=== PATIENT | female | born 1970 | race Caucasian/White ===

== ENCOUNTER → 2018-11-18 | Outpatient (CLI) | payer OTHER ==
[~2018-11-18] MED LIST: BIOT10005 PO; BUPR-124 PO; BUPR-136 PO; BUPR-147 PO; CETI10CA8 PO; FISH1CAP15 PO; HYDR-2963 PO; IBUP800T37 PO; LEVO137T22 PO; LISI-362 PO; LISI5TAB25 PO; MULT1TAB64 PO; OXYC-865 PO; SIMV10TA96 PO
[2018-11-18 08:48] LABS: LDL CHOLESTEROL 97 mg/dl
--- NOTE | 2018-11-18 17:29 | RADIOLOGY IMAGING REPORT ---
FACILITY: [facility] - [place], [place] PATIENT NAME: Gerald Sheikh : 1970 MR: [id number] V: [id number] EXAM DATE: ORDERING PHYSICIAN: JOSHUA BLACKBURN TECHNOLOGIST: Location: [facility] - [place] Patient: Gerald Sheikh : 1970 Visit/Account:[id number] Date of Sevice: 11/18/2018 TRANSVAGINAL NON-OB HISTORY: Unsure postmenopausal state, vaginal bleeding TECHNIQUE: Transvaginal ultrasound pelvis. COMPARISON: None. FINDINGS: Uterus: ; 7.2 cm length x 5.3 cm AP x 6.5 cm transverse. Myometrium: Centrally within the uterus there is heterogeneous echogenic masslike area measuring 4.8 x 3.7 x 4.2 cm. It is unclear as to whether this represents a myometrial fibroid effacing the endome trium or whether this represents an endometrial mass. A normal-appearing endometrium is not seen. Endometrium: As above; Cervix: Nabothian cysts. Ovaries: Right - 3.3 x 2.2 x 2.7 cm. No follicles are identified in the right ovary. There are scattere d calcifications present Left - not visualized Blood flow is documented in the right ovary by duplex Doppler ultrasound. Adnexa: Grossly unremarkable. Free pelvic fluid: None. IMPRESSION: There is a large heterogeneous predominantly echogenic mass centrally within the uterus measuring 4.8 x 3.7 x 4.2 cm. This could represent a large fibroid which is effacing the endometrium is a normal- appearing endometrium is not seen. Different diagnosis would also include an endometrial mass. Right ovary contains scattered calcifications. No follicles identified Left ovary not visualized Report Dictated By: Dia Dennison MD at 11/18/2018 5:20 PM Report E-Signed By: Dia Dennison MD at 11/18/2018 5:24 PM WSN:[email or web address]
== END ==
LOC: US 01:02
PROVIDERS: ATTEND Obstetrics & Gynecology
DX: R93.2 Abnormal findings on diagnostic imaging of liver and biliary tract (principal); Z00.00 Encounter for general adult medical examination without abnormal findings; I10 Essential (primary) hypertension; E78.5 Hyperlipidemia, unspecified; E03.9 Hypothyroidism, unspecified; E11.9 Type 2 diabetes mellitus without complications; N95.0 Postmenopausal bleeding
CPT/HCPCS: 36415; 76830; 82040; 82247; 82310; 82374; 82435; 82465; 82565; 82947; 83036; 83718; 84075; 84132; 84155; 84295; 84443; 84450; 84460; 84478; 84520; 85027

== ENCOUNTER 2019-02-11 01:37 | Observation (INO) | payer OTHER ==
[~2019-02-11] VITALS: Ht 162.6 cm; Wt 101.2 kg
[2019-02-11] VITALS (13 sets, daily range): BP systolic 104–129; BP diastolic 56–94
[~2019-02-11 01:37] MED LIST changes: +SEMA1PEN SUBQ
[2019-02-11 06:21] LABS: PLATELET COUNT, AUTOMATED 305 K/uL (150-450)
[2019-02-11] MEDS ORDERED: LIDOCAINE/SOD BICARB 8.4% SYR ID ONE (06:30)
[2019-02-11] MEDS ORDERED: PHENAZOPYRIDINE 200 MG TAB PO ONE (06:30)
[2019-02-11] MEDS ORDERED: ceFAZolin(*) 2GM/D5W 50ML 50 ML IVPB ONE (06:30)
[2019-02-11] MEDS ORDERED: MIDAZOLAM 2 MG/2 ML VIAL IVP PRN (06:30)
[2019-02-11] MEDS ORDERED: NORMOSOL R SOLN(*) 1000 ML BAG 1,000 ML IV PRN (06:30)
[2019-02-11] MEDS ORDERED: FAMOTIDINE 20 MG TAB PO ONE (06:30)
[2019-02-11] MEDS ORDERED: BUPIV/EPI 0.25% 1:200,000 50ML INFIL ONE (06:52)
[2019-02-11] MEDS ORDERED: ROCURONIUM BROM 10 MG/ML 10 ML ONE (07:06)
[2019-02-11] MEDS ORDERED: DEXAMETHASONE SOD 4 MG/ML VIAL ONE (07:06)
[2019-02-11] MEDS ORDERED: fentaNYL CITR 250 MCG/5 ML AMP ONE (07:06)
[2019-02-11] MEDS ORDERED: SUGAMMADEX SOD 200 MG/2 ML SDV ONE (07:06)
[2019-02-11] MEDS ORDERED: LIDOCAINE MPF 1% 5 ML VIAL ONE (07:06)
[2019-02-11] MEDS ORDERED: ONDANSETRON 4 MG/2 ML VIAL ONE (07:06)
[2019-02-11] MEDS ORDERED: PROPOFOL EMUL(*) 10MG/ML 20 ML 20 ML ONE (07:06)
[2019-02-11] MEDS ORDERED: KETAMINE HCL-NS 50 MG/5 ML SYR ONE (07:07)
[2019-02-11] MEDS ORDERED: HYDROmorphone HCL 2 MG/ML SDV ONE (07:07)
[2019-02-11] MEDS ORDERED: DLR(*) 1000 ML BAG 1,000 ML IV PRN (09:11)
--- NOTE | 2019-02-11 09:11 | Post Operative Note ---
Operative Note - BANANA LOADER Operative Day Date: Feb 11, 2019 Time: 09:09 Physicians Surgeon: Ximena Calendar Control Clerk Blood Bank: José Miguel Anesthesia: Loaiza, GETA Diagnosis Pre-Op Diagnosis: Menorrhagia, Fibroid, Vaginal mesh erosion Post-Op Diagnosis: Same Procedure Procedure(s): RATLH, BS, dx cysto, vaginal mesh erosion Specimen Removed:(Maybe N/A): Uterus, tubes, cervix, mesh Fluids Fluids: IVF: 1800cc UOP: 150cc Estimated Blood Loss: Minimal JOSHUA BLACKBURN MD Feb 11, 2019 09:10
[2019-02-11] MEDS ORDERED: SIMETHICONE 80 MG CHEW CHEW PRN (09:15)
[2019-02-11] MEDS ORDERED: METOCLOPRAMIDE 10 MG/2 ML SDV IV PRN (09:15)
[2019-02-11] MEDS ORDERED: MAGNESIUM HYDROXIDE* 30ML UDCP PO PRN (09:15)
[2019-02-11] MEDS ORDERED: ACETAMINOPHEN 325 MG TAB PO PRN (09:15)
[2019-02-11] MEDS ORDERED: ONDANSETRON 4 MG/2 ML VIAL IV PRN (09:15)
[2019-02-11] MEDS ORDERED: KETOROLAC 30 MG/ML VIAL IVP SCH (10:00)
--- NOTE | 2019-02-11 10:48 | OPERATIVE REPORT 1 ---
EVENT DATE: February 11, 2019 SURGEON: Vida Bueno MD ANESTHESIOLOGIST: Phillip Loaiza MD ANESTHESIA: General endotracheal tube anesthetic. TECHNICAL TRAINING COORDINATOR: Margarita Valdez MD PREOPERATIVE DIAGNOSIS 1. Postmenopausal bleeding. 2. Uterine fibroid. 3. Vaginal mesh erosion. POSTOPERATIVE DIAGNOSIS 1. Postmenopausal bleeding. 2. Uterine fibroid. 3. Vaginal mesh erosion. PROCEDURE PERFORMED 1. Robotic-assisted total laparoscopic hysterectomy with bilateral salpingectomy. 2. Diagnostic cystoscopy. 3. Vaginal mesh excision. SPECIMENS 1. Uterus, bilateral fallopian tubes and cervix. 2. Vaginal mesh. IV FLUIDS 1800 cc. URINE OUTPUT 150 cc. ESTIMATED BLOOD LOSS Minimal. INDICATIONS FOR PROCEDURE This patient is a 48-year-old 3, para 1-0-2-1 who presented to clinic with continuous postmenopausal bleeding. During evaluation, she was found to have a fibroid which was stable over time. An endometrial biopsy was benign. The patient was counselled on multiple options, but eventually decided to proceed with a hysterectomy. Please see the history and physical for full details. In addition, the patient had a TOT-sling placed previously and had experienced vaginal mesh erosion. While this was asymptomatic, it was decided it would be appropriate to remove at this time. She was therefore consented for the above said procedure. DESCRIPTION OF PROCEDURE The patient was properly identified and taken to the operating room. She was placed under general endotracheal tube anesthesia and placed in the dorsal lithotomy position, and prepped and draped in the usual fashion for a laparoscopic procedure. The patient received Ancef preoperatively for prophylactic antibiotics. Her SCDs were on and functioning. A bimanual exam was performed which revealed a 10 cm anteverted uterus. A right-angle rectractor was placed posteriorly and a Charlotte anteriorly to the cervix which was without lesion. The anterior lip of the cervix was grasped with an Allis clamp. The cervix was serially dilated to 5 mm using Hegar dilators without difficulty. A medium VCare uterine manipulator was then requested and assembled. A suture was placed through the anterior lip of the cervix, through the os and then from the os to the posterior lip of the cervix. This was then passed through the VCare. The VCare was placed into the uterine fundus and the tip was insufflated. This remained in place and the colpotomy ring was advanced to be flush against the cervix and vaginal mucosa. This was then tied down with the 0 Vicryl suture. The PneumoClear was then advanced into the vagina and secured. A Coyne catheter was then placed to drain the bladder. The patient was then placed in the supine position and attention was turned to the laparoscopic portion of the procedure. The supraumbilical region was infiltrated with 0.25% Marcaine with epinephrine. The Veress needle was then tested and proven to be functioning. An 8 mm incision was made supraumbilically. The Veress needle was then passed through this incision into the abdominal cavity using the double-click test. Pneumoperitoneum was achieved. The 8 mm trocar was introduced through this infraumbilical midline incision under direct visualization using a Moovit laparoscope. Once entry into the abdominal cavity was confirmed, the remaining locations of the trocars were placed with 2 on the right and 2 on the left. The two 8 mm trocars were inserted under direct visualization on the patient's right side after infiltrating 0.25% Marcaine and making an 8 mm incision with the scalpel. On the patient's left side, an 11 mm incision was made with the most lateral incision and an 8 mm incision the more medial. These two ports were then introduced under direct visualization. At this time, the patient was placed in a Trendelenburg position and the [email or web address] robotic system was prepared for docking. It was then brought in and aligned. The endoscope part was docked. The endoscope was then introduced and targeting was performed on the uterus. The remaining arms were then docked without difficulty. The fenestrated bipolar graspers, ProGrasp and monopolar scissors were then advanced under direct visualization into the pelvis and energy was connected. At this time, I was able to break sterile attire and sat at the console to initiate the procedure. Examination of the pelvis revealed no significant adhesions, but the uterus was noted to be enlarged and globular in size. In order to initiate the salpingectomy on the patient's left side, the left fallopian tube was elevated and the mesosalpinx was cauterized and transected. The fallopian tube was then completely at the uterine attachment and brought out through the 11 mm port. The same procedure was performed on the patient's right side by elevating the tube, cauterizing the mesosalpinx and the tube completely. Once the tubes were completely removed, attention was then turned to the hysterectomy. The patient's right round ligament was identified, cauterized and transected, followed by cauterizing and transecting the uteroovarian ligament. The broad ligament was unable to be opened and the anterior leaflet was opened and brought across the midline above the colpotomy ring in order to separate the vesicouterine peritoneum. The posterior peritoneum was then dissected further off the uterus on the right side of the cervix. The uterine vessels were identified, cauterized and transected in order to allow the colpotomy to be performed. Attention was then turned to the patient's left side where the left round ligament was cauterized and transected, followed by the uteroovarian ligament. The round ligament was then opened on the left side and the anterior leaflet was brought across to meet the other side. The posterior peritoneum was then retracted off of the colpotomy ring as well. The left uterine vessels were cauterized and transected. Once adequate clearing of the uterine vessels was achieved, the bladder flap was further delineated then brought down without difficulty to safe area in order to allow for closure of the vaginal cuff later. the colpotomy was then initiated anteriorly with identification of the colpotomy ring. The colpotomy was then continued in the circumferential fashion until the entire colpotomy was completed. The uterus was then delivered into the vagina and left within the vagina to allow for pneumoperitoneum. The cuff was copiously irrigated and noted to be hemostatic. An 0 Vicryl suture was utilized as a trxqus-zl-isheq manner to reapproximate the tissue in the left corner. A V-Loc suture was then initiated on the right side to reapproximate the right corner, following to the left with an unlocked suture. Once this was completely closed, the suture was followed backwards with one additional suture towards the right. Once this was completed, copious irrigation was again performed revealing adequate hemostasis. Using the Ovidio-Milton device, the fascia of the medical office assistant port was then closed using an 0 Vicryl with robotic assistance. All of the robotic arms were undocked and the instruments were removed. The pneumoperitoneum was relieved and the 11 mm fascia was tied down. All five skin incisions were reapproximated using a 4-0 Monocryl and closed with Dermabond. The Coyne catheter was then removed from the bladder as the cystoscope was assembled and introduced through the urethra and into the bladder under direct visualization. The entire bladder was evaluated and noted to be normal without any lesion or sutures. Bilateral ureteral jets were noted with Pyridium stained urine. The cystoscope was removed and the Coyne catheter was replaced. Attention was then turned to the vaginal mesh. There was approximately a 1 cm aspect of the vaginal mesh which was eroded through the vagina. The vaginal tissue surrounding this appeared within normal limits. The mesh was grasped with a hemostat and elevated in order to allow for complete dissection of visible mesh. This mesh was able to be removed in a single piece. Further evaluation of the vagina did not reveal any other mesh and it was hemostatic, therefore suture was not needed. The patient tolerated this procedure well and recovered in the post-anesthesia care unit. All sponge, needle, instrument counts were correct at the end of this procedure. MAYA
[2019-02-11] MEDS ORDERED: ALBUTEROL/IPRATROPIUM 3 ML NEB NEB ONE (11:40)
--- NOTE | 2019-02-11 13:30 | OB/GYN Progress Note ---
OB Subjective Progress Notes Subjective Pt is doing very well. She denies pain. She tolerated lunch without N/V. Not yet ambulating. Coyne still in. She denies CP/SOB. OB Objective Physical Exam Vital Signs Date Time Temp Pulse Resp B/P (MAP) Pulse Ox O2 Delivery O2 Flow Rate FiO2 02/11/19 11:30 97.5 82 114/69 (84) 95 Nasal Cannula 5.0 02/11/19 11:00 16 General Appearance: Alert/Awake/No Acute Distress Neurological: No Gross deficits Eyes: Normal Extraocular Movement & Vison Cardiovascular: Normal Rhythm & Peripheral Pulses, Regular Rate and Rhythm Respiratory: No Respiratory Distress, Clear to Auscultation Abdomen: Soft, Non-Tender, Non-Distended Incision: Clean, Dry, Intact Musculoskeletal: No Weakness/Pain Extremities: No Cyanosis,Clubbing or Edema Integumentary: Skin Intact without Lesions or Rash Psychological: Alert & Oriented X3, Appropriate Mood & Affect Result Diagram: 02/11/19 0611 02/11/19 0610 Assessment and Plan Problems: (1) Status post laparoscopic hysterectomy Assessment & Plan: POD#0 s/p RATLH/BS/dx cysto with vaginal mesh excision. She is doing well. Routine orders. Anticipate discharge tomorrow. JOSHUA BLACKBURN MD Feb 11, 2019 13:30
[2019-02-11] MEDS ORDERED: OXYC-865 PO (13:33)
[2019-02-11] MEDS ORDERED: IBUP800T37 PO (13:33)
[2019-02-11] MEDS: IBUPROFEN 800 MG TAB PO PRN (16:16)
[2019-02-11] MEDS: FAMOTIDINE 20 MG TAB PO SCH (20:23)
[2019-02-11] MEDS: DOCUSATE CALCIUM 240 MG CAP PO SCH (20:23)
[2019-02-12 02:50] VITALS: BP 121/78
[2019-02-12] MEDS ORDERED: IBUPROFEN 800 MG TAB PO PRN (04:00)
[2019-02-12] MEDS: IBUPROFEN 800 MG TAB PO PRN (04:27)
[2019-02-12 07:01] LABS: PLATELET COUNT, AUTOMATED 271 K/uL (150-450)
--- NOTE | 2019-02-12 08:08 | OB/GYN Progress Note ---
OB Subjective Progress Notes Subjective Doing well. Pain controlled with oral medications. Tolerating regular diet. Ambulating. Voiding. Passing flatus. No vaginal bleeding. No chest pain, shortness of breath or dizziness. OB Objective Physical Exam Vital Signs Date Time Temp Pulse Resp B/P (MAP) Pulse Ox O2 Delivery O2 Flow Rate FiO2 02/12/19 02:50 98.0 85 20 121/78 (92) 91 Nasal Cannula 1.0 Intake and Output 02/12/19 07:00 Intake Total 2460 ml Output Total 750 ml Balance 1710 ml Intake Oral 560 ml IV Total 1900 ml Output Urine Total 750 ml General Appearance: Alert/Awake/No Acute Distress Neurological: No Gross deficits Eyes: Normal Extraocular Movement & Vison Cardiovascular: Normal Rhythm & Peripheral Pulses, Regular Rate and Rhythm Respiratory: No Respiratory Distress, Clear to Auscultation Abdomen: Soft, Non-Tender, Non-Distended Incision: Clean, Dry, Intact Musculoskeletal: No Weakness/Pain Extremities: No Cyanosis,Clubbing or Edema Integumentary: Skin Intact without Lesions or Rash Psychological: Alert & Oriented X3, Appropriate Mood & Affect Result Diagram: 02/12/19 0630 02/11/19 0610 Assessment and Plan Problems: (1) Status post laparoscopic hysterectomy Assessment & Plan: POD#1 s/p RATLH/BS/dx cysto with vaginal mesh excision. Meeting milestones. Desires discharge to home today. Discussed routine postoperative expectations. Questions answered. Follow up in clinic in 1-2wks for postop check. JOSHUA BLACKBURN MD Feb 12, 2019 08:08
--- NOTE | 2019-02-12 08:09 | OB/GYN Discharge Summary ---
Discharge Summary Reason for Hosp/Final Diag: (1) Status post laparoscopic hysterectomy Hospital Course & Plan: POD#1 s/p RATLH/BS/dx cysto with vaginal mesh excision. Meeting milestones. Desires discharge to home today. Discussed routine postoperative expectations. Questions answered. Follow up in clinic in 1-2wks for postop check. Lates Vital Signs Vital Signs Date Time Temp Pulse Resp B/P (MAP) Pulse Ox O2 Delivery O2 Flow Rate FiO2 02/12/19 02:50 98.0 85 20 121/78 (92) 91 Nasal Cannula 1.0 Weight (Pounds): 223 Result Diagram: 02/12/1930 02/11/19 0610 Condition: Improved Discharge: Home, Self Usp Meds Active Scripts Oxycodone Hcl/Acetaminophen (PERCOCET 5-325 MG TABLET) 1 Each Tablet, 1 TAB PO Q4-6H PRN for pain, #20 TAB 0 Refills Prov:JOSHUA BLACKBURN MD 02/11/19 Bupropion Hcl (BUPROPION XL) 150 Mg Tab.er.24h, 150 MG PO QDAY, #90 TAB 3 Refills Prov:JOSHUA BALCKBURN MD 10/23/18 Simvastatin (ZOCOR) 10 Mg Tablet, 10 MG PO HS, #90 TAB 3 Refills Prov:JOSHUA BLACKBURN MD 10/23/18 Lisinopril (LISINOPRIL) 10 Mg Tablet, 10 MG PO QDAY for 90 Days, #90 TAB 3 Refills Prov:JOSHUA BLACKBURN MD 10/23/18 Hydrochlorothiazide (HYDROCHLOROTHIAZIDE) 50 Mg Tablet, 1 TAB PO BID, #180 TAB 3 Refills Prov:JOSHUA BLACKBURN MD 10/23/18 Levothyroxine Sodium (SYNTHROID) 137 Mcg Tablet, 137 MCG PO QDAY for 90 Days, #90 TAB 3 Refills Prov:JOSHUA BLACKBURN MD 10/23/18 Reported Medications Semaglutide (Ozempic) 1 Mg/0.75 Ml (2 Mg/1.5 Ml) Pen.injctr, 0.5 MG SUBQ 02/03/19 Cetirizine Hcl (ZYRTEC) 10 Mg Capsule, 10 MG PO QDAY PRN for ALLERGY SYMPTOMS, CAPSULE 07/19/16 Biotin (Biotin) 10,000 Mcg Capsule, 1 TAB PO QDAY 07/19/16 Fish Oil/Dha/Epa (FISH OIL 1,200 MG FISH OIL) 1 Each Capsule, 1 EACH PO BID, CAPSULE 07/19/16 Multivitamin (MULTI VITAMIN DAILY) 1 Each Tablet, 1 EACH PO QDAY 07/19/16 Follow up Referrals: [employer] - [place] [facility] with JOSHUA BLACKBURN MD Discharge Diet: As Tolerates Discharge Activity: No Heavy Lifting > 10lb, Pelvic Rest Special Instructions: Take a stool softener twice daily. Add in milk of magnesia as needed for constipation. JOSHUA BLACKBURN MD Feb 12, 2019 08:09
[2019-02-12 08:45] VITALS: BP 103/71
[2019-02-12] MEDS: FAMOTIDINE 20 MG TAB PO SCH (08:49)
[2019-02-12] MEDS: DOCUSATE CALCIUM 240 MG CAP PO SCH (08:49)
[2019-02-12] MEDS ORDERED: LISINOPRIL 10 MG TAB PO SCH (09:00)
[2019-02-12] MEDS ORDERED: HYDROCHLOROTHIAZIDE 25 MG TAB PO SCH (09:00)
[2019-02-13] MEDS ORDERED: INFLUENZA VIRUS VAC 0.5ML SYR IM ONLY ONE (09:15)
== END 2019-02-12 08:08 | disposition home or self-care (01) ==
LOC: OR 01:37 → PED 10:35
PROVIDERS: ADMIT Obstetrics & Gynecology; ATTEND Obstetrics & Gynecology
DX: N95.0 Postmenopausal bleeding (principal); T83.711A Erosion of implanted vaginal mesh to surrounding organ or tissue, initial encounter; D25.9 Leiomyoma of uterus, unspecified; I10 Essential (primary) hypertension; E11.9 Type 2 diabetes mellitus without complications; E03.9 Hypothyroidism, unspecified; F41.9 Anxiety disorder, unspecified; F43.29 Adjustment disorder with other symptoms; E78.5 Hyperlipidemia, unspecified
CPT/HCPCS: 36415; 36416; 57287; 58571; 82948; 84703; 85025; 88307; 94640; 94667; G0378; J1100; J1170; J1885; J2001; J2250; J2405; J2704; J3010; J3490; J7620; S2900; 82310; 82374; 82435; 82565; 82947; 84132; 84295; 84520; J0690